=== PATIENT | male | born 1990 | race Caucasian/White ===

== ENCOUNTER → 2016-09-29 | Outpatient (CLI) | payer OTHER ==
--- NOTE | 2016-09-29 12:23 | KCIC ---
3 view right wrist and three-view right hand HISTORY: Fell from stairs 3 days ago. Wrist pain. Hand pain at the third through fifth metacarpals. Right wrist Small cortical defect at the medial edge of the distal triquetrum, seen on the oblique view, possibly a small nondisplaced fracture. Joint space is intact. No significant soft tissue abnormality. Right hand No evidence of an acute fracture. No dislocation. No significant soft tissue abnormality. No evidence of bone destruction. IMPRESSION: Small cortical defect at the distal triquetrum, potentially a small nondisplaced fracture. Correlate for focal pain or tenderness here. Electronically signed by: Eliazar Rosas MD (09/29/2016 12:20 PM)
== END | disposition home or self-care (01) ==
LOC: KCIC 10:51
PROVIDERS: ATTEND Family Medicine
DX: M79.641 Pain in right hand (principal); M25.531 Pain in right wrist; W10.8XXA Fall (on) (from) other stairs and steps, initial encounter; Y93.89 Activity, other specified; Y92.89 Other specified places as the place of occurrence of the external cause; Y99.8 Other external cause status
CPT/HCPCS: 73110; 73130